=== PATIENT | male | born 1965 | race African-American/Black ===

== ENCOUNTER 2016-10-24 13:21 | Emergency (ER) | payer OTHER ==
[~2016-10-24] VITALS: Ht 180.3 cm; Wt 92.1 kg
--- NOTE | 2016-10-24 14:33 | ED GENERAL ADULT ---
History of Present Illness General Chief Complaint: General Adult Stated Complaint: HIGH BP; [place] Source: patient, family Exam Limitations: no limitations Vital Signs & Intake/Output Vital Signs & Intake/Output Vital Signs Date Time Temp Pulse Resp B/P Pulse O2 O2 Flow FiO2 Ox Delivery Rate 10/24 1539 98.0 74 18 168/100 98 Room Air Room Air 10/24 1327 98.2 70 18 173/98 97 Room Air Allergies Coded Allergies: Penicillins (Intermediate, FACIAL SWELLING 10/24/16) Reconcile Medications Amlodipine (Norvasc) 2.5 MG TABLET 1 TAB PO DAILY BP (Reported) Ibuprofen (Advil Migraine) 200 MG CAPSULE 4 CAP PO PRN PAIN (Reported) Lidocaine (Lidoderm) 5 % ADH..PATCH 1 PAT TOP PRN PAIN (Reported) may wear up to 12 hours Lisinopril 30 MG TABLET 1 TAB PO DAILY HEART (Reported) Triage Note: 51 YEAR OLD MALE STATES THAT HE WAS OFF HIS BP MEDS FOR 3 WEEKS DUE TO HE RAN OUT AND THAT HE WENT TO PMD THIS AM AND RECIEVED REFILLS, JUST STARTED TO TAKE AGAIN AT 1130. COMES TO ER DUE TO BP IS STILL ELEVATED AND HAS A SLIGHT HEADACHE Triage Nurses Notes Reviewed? yes HPI: 51-year-old male with a history of hypertension presents with hypertension and headache. He stopped taking his lisinopril 3 months ago, 30 mg, because he ran out of his prescription. Over the last month or so, he is getting intermittent headaches, denies any chest pain or blurry vision. Denies any nausea or vomiting. He went to see his primary care doctor today, they ryan blood tests but he does not know the results, he states his blood pressure was 175/103, they gave him lisinopril 30 mg and Norvasc 2.5 mg. His girlfriend insisted that he comes to the ER for further evaluation as he is having headaches and his blood pressure has not decreased since taking the medication this morning. He denies any nausea vomiting or shortness of breath OR dyspnea on exertion, Past History Travel History Traveled to [place] past 21 day No Medical History Any Pertinent Medical History? 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 No Review of Systems Review of Systems Constitutional: Reports: see HPI. EENTM: Reports: no symptoms. Respiratory: Reports: no symptoms. Cardiovascular: Reports: no symptoms. GI: Reports: no symptoms. Genitourinary: Reports: no symptoms. Musculoskeletal: Reports: no symptoms. Skin: Reports: no symptoms. Neurological/Psychological: Reports: see HPI. Hematologic/Endocrine: Reports: no symptoms. Immunologic/Allergic: Reports: no symptoms. All Other Systems: Reviewed and Negative Physical Exam Physical Exam General Appearance: well developed/nourished Comments: Well-developed well-nourished person in no acute distress HEENT: Normal EENT exam, extraocular motion intact, no nystagmus. Pupils equally round and reactive to light. Nose is atraumatic. Pharynx normal. No swelling or edema. Neck: Supple, no lymphadenopathy, normal range of motion without pain or tenderness Back: Nontender, no CVA tenderness. Full range of motion Cardiovascular: Regular rate and rhythms no murmurs, normal JVP Respiratory: Chest nontender. No respiratory distress. Breath sounds clear to auscultation bilaterally Abdomen: Soft, nontender nondistended, no appreciable organomegaly. Normal bowel sounds. No ascites Extremity: No edema, no calf tenderness to palpation, normal and equal pulses. Neuro: Alert oriented x3, motor sensory normal, cranial nerves II through XII grossly intact. Skin: No appreciable rash on exposed skin, skin is warm and dry. Psych: Mood and affect is normal, memory and judgment is normal. Core Measures ACS in differential dx? Yes CVA/TIA Diagnosis: No Severe Sepsis Present: No Septic Shock Present: No Progress Differential Diagnoses I considered the following diagnoses in my evaluation of the patient: Plan of Care: Orders Procedure Date/time Status Add-on Test (ER Only) 10/24 1425 Active URINALYSIS 10/24 1401 Complete TROPONIN LEVEL 10/24 1401 Complete COMPREHENSIVE METABOLIC PANEL 10/24 1401 Complete CBC WITHOUT DIFFERENTIAL 10/24 1401 Complete EKG 10/24 1401 Active Laboratory Tests 10/24/16 1432: Urine Color YEL, Urine Clarity CLEAR, Urine pH 6.0, Ur Specific [place] 1.025, Urine Protein TRACE H, Urine Ketones NEG, Urine Nitrite NEG, Urine Bilirubin NEG, Urine Urobilinogen 0.2, Ur Leukocyte Esterase NEG, Ur Microscopic SEDIMENT EXAMINED, Urine RBC RARE, Ur Epithelial Cells FEW, Urine Bacteria RARE H, Urine Mucus FEW, Urine Hemoglobin NEG, Urine Glucose NEG 10/24/16 1420: Anion Gap 9, Estimated GFR > 60, BUN/Creatinine Ratio 23.0, Glucose 103 H, Calcium 9.6, Total Bilirubin 0.5, AST 22, ALT 20 L, Alkaline Phosphatase 81, Troponin I 0.01, Total Protein 7.2, Albumin 3.8, Globulin 3.4, Albumin/Globulin Ratio 1.1, CBC w Diff NO MAN DIFF REQ, RBC 5.46, MCV 83.0, MCH 27.7, RDW 13.7, MPV 8.8, Gran % 65.2, Lymphocytes % 22.7, Monocytes % 8.9, Eosinophils % 2.7, Basophils % 0.5, Absolute Granulocytes 5.7, Absolute Lymphocytes 2.0, Absolute Monocytes 0.8 H, Absolute Eosinophils 0.2, Absolute Basophils 0, PUBS MCHC 33.4 Initial ED EKG: NORMAL SINUS RHYTHM 60 BPM,st ELEVATION NOTED v1 AND v2 v3 AND v4. st/t-WAVE DEPRESSION NOTED IN LEADS 1 Avl AND v6. lvh. Prior EKG: unchanged Rhythm Strip: normal sinus rhythm Comments: Patient's EKG noted and discussed with Dr. Burgess. It is a concerning-appearing EKG however patient is asymptomatic in regards to chest pain. We are trying to obtain a previous EKG from his primary care doctor's office. He states he did not have an EKG earlier this morning I called patient's primary care doctor's office and received a fax from them of his old EKG from 06/10/2015, it is not significant change from EKG that we have today. I discussed this with the patient, he states that prior to his liver cancer resection surgery he was found to have an abnormal EKG as well as had a workup and said that it was normal for him. His erythema is unremarkable, he has trace proteinuria, discusses with the patient, he should continue with his usual antihypertensive medication, Motrin and Tylenol for headaches, avoid salt and he has a follow-up with his primary care doctor in 2 weeks' time Departure Departure Disposition: HOME OR SELF CARE Condition: Stable Clinical Impression Primary Impression: Hypertension Qualifiers: Hypertension type: essential hypertension Qualified Code: I10 - Essential (primary) hypertension Referrals: CLAUDIA GUERRERO MD (PCP/Family) Additional Instructions: Please take your blood pressure medication as directed and follow-up with her primary care doctor in 2 weeks for recheck of your blood pressure. Take Tylenol and/or ibuprofen as needed for headaches Departure Forms: Customer Survey General Discharge Information Critical Care Note Critical Care Note Critical Care Time: non-applicable
[2016-10-24 14:35] LABS: ABSOLUTE BASOPHIL COUNT 0 /CUMM (0.0-0.2); ABSOLUTE EOSINOPHIL COUNT 0.2 /CUMM (0.0-0.7); ABSOLUTE GRANULOCYTE CT 5.7 /CUMM (1.4-6.5); ABSOLUTE MONOCYTE COUNT 0.8 /CUMM (0.10-0.60); BASOPHIL % 0.5 % (0.0-2.0); EOSINOPHIL % 2.7 % (0-5); GRANULOCYTE % 65.2 % (42.2-75.2); HEMATOCRIT 45.3 % (42-52); MEAN CORPUSCULAR HGB 27.7 PG (27.0-31.0); MEAN CORPUSCULAR HGB CONC 33.4 G/DL (33.0-37.0); MEAN PLATELET VOLUME 8.8 FL (7.4-10.4); PLATELET COUNT 301 /CUMM (130-400); RBC DISTRIBUTION WIDTH 13.7 % (11.5-14.5); RED BLOOD CELL CT 5.46 /CUMM (4.70-6.10); WHITE BLOOD CELL COUNT 8.7 /CUMM (4.8-10.8)
[2016-10-24] MEDS ORDERED: LISINOPRIL30 M1 PO (14:46)
[2016-10-24] MEDS ORDERED: LIDODERM1 EACH TOP (15:25)
[2016-10-24] MEDS ORDERED: ADVIL MIGRAINE200 M1 PO (15:25)
[2016-10-24] MEDS ORDERED: NORVASC2.5 M1 PO (15:25)
[2016-10-24 15:39] VITALS: BP 168/100
== END 2016-10-24 15:40 ==
LOC: ERH 13:21
PROVIDERS: Physician Assistant Surgical
DX: I10 Essential (primary) hypertension (principal)
CPT/HCPCS: 81001; 93005; 93010

== ENCOUNTER 2018-05-11 20:44 | Inpatient (IN) | payer OTHER ==
[~2018-05-11] VITALS: Ht 180.3 cm; Wt 92.7 kg
[~2018-05-11 20:44] MED LIST: ADVIL MIGRAINE200 M1 PO; LIDODERM1 EACH TOP; LISINOPRIL30 M1 PO; NORVASC2.5 M1 PO
--- NOTE | 2018-05-11 21:16 | ED CARDIAC/CP/PALPITATIONS ---
History of Present Illness General Chief Complaint: General Adult Stated Complaint: "HEADACHE, CHEST PAIN, WEAKNESS" Source: patient Exam Limitations: no limitations Vital Signs & Intake/Output Vital Signs & Intake/Output Vital Signs Date Time Temp Pulse Resp B/P B/P Pulse O2 O2 Flow FiO2 Mean Ox Delivery Rate 05/12 0127 98.2 53 18 140/84 94 Room Air 05/11 2353 54 18 116/66 97 Room Air 05/11 2118 Room Air 05/11 2118 160/88 ED Intake and Output 05/12 0000 05/11 1200 Intake Total Output Total Balance Patient 206 lb Weight Weight Standing Scale Measurement Method Allergies Coded Allergies: Penicillins (Intermediate, FACIAL SWELLING 10/24/16) Reconcile Medications Amlodipine (Norvasc) 2.5 MG TABLET 1 TAB PO DAILY BP (Reported) Ibuprofen (Advil Migraine) 200 MG CAPSULE 4 CAP PO PRN PAIN (Reported) Lisinopril 30 MG TABLET 1 TAB PO DAILY HEART (Reported) Triage Nurses Notes Reviewed? yes HPI: 53 yo gentleman presents with 5/10 substernal chest pressure that began in the morning, occasional radiating down let arm, and associated with dizziness. He notes mild shortness of breath. No fever, chills, nusea/vomiting. Past History Travel History Traveled to [place] past 21 day No Medical History Any Pertinent Medical History? 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 No Review of Systems Review of Systems Constitutional: Reports: no symptoms. EENTM: Reports: no symptoms. Respiratory: Reports: no symptoms. Cardiovascular: Reports: no symptoms. GI: Reports: no symptoms. Genitourinary: Reports: no symptoms. Musculoskeletal: Reports: no symptoms. Skin: Reports: no symptoms. Neurological/Psychological: Reports: no symptoms. Hematologic/Endocrine: Reports: no symptoms. Immunologic/Allergic: Reports: no symptoms. All Other Systems: Reviewed and Negative Physical Exam Physical Exam General Appearance: well developed/nourished, mild distress Head: atraumatic, normal appearance Eyes: Bilateral: normal appearance, PERRL, EOMI. Ears, Nose, Throat: normal pharynx, normal ENT inspection Neck: normal inspection, supple, full range of motion Respiratory: normal breath sounds Cardiovascular: regular rate/rhythm, normal peripheral pulses Gastrointestinal: normal bowel sounds, soft, non-tender, no organomegaly Rectal: normal exam, normal rectal tone, heme negative stool Back: normal inspection, normal range of motion Extremities: normal capillary refill, normal range of motion Neurologic/Psych: no motor/sensory deficits, awake, alert, oriented x 3 Skin: intact, normal color, warm/dry Core Measures ACS in differential dx? Yes No ASA d/t aspirin giveen CVA/TIA Diagnosis No Sepsis Present: No Sepsis Focused Exam Completed? No Progress Differential Diagnosis: AMI, aortic dissection, atrial fibrillation, cholecystitis, CHF/pulm edema, costochondritis, hyperkalemia, hypovolemia Plan of Care: Orders Procedure Date/time Status Nothing by Mouth 05/12 B Active TROPONIN LEVEL 05/12 0930 Active EKG 05/12 0930 Active MAGNESIUM 05/12 0600 Active LIPID PANEL 05/12 0600 Active GLYCOSYLATED HGB 05/12 0600 Active CBC WITHOUT DIFFERENTIAL 05/12 0600 Active BASIC ELECTROLYTES PLUS BUN&CR 05/12 0600 Active PARTIAL THROMBOPLASTIN TIME 05/12 0545 Active TROPONIN LEVEL 05/12 0330 Complete EKG 05/12 0330 Active Weight 05/12 0120 Active Vital Signs 05/12 0120 Active Teach/Educate 05/12 0120 Active Pain Treatment and Response 05/12 0120 Active Nutritional Intake, Monitor 05/12 0120 Active Isolation 05/12 0120 Active Intake & Output 05/12 0120 Active Patient Care Conference 05/12 0120 Active Activity/Ambulation 05/12 0120 Active Admit to inpatient 05/12 0040 Active Pathway - chart 05/12 0016 Active Patient Data 05/12 0016 Active Code Status 05/12 0016 Active Pathway - chart 05/12 UNK Active House Staff 05/12 UNK Active Lab Add-on Test 05/12 UNK Active VTE Mechanical Prophylaxis 05/12 UNK Active Telemetry/Certified Tumor Registrar 05/12 UNK Active Intake & Output 05/11 2352 Complete Patient Data 05/11 2323 Active Saline Lock 05/11 2310 Active Misc Message 05/11 2310 Active ED Holding Orders 05/11 2310 Active Vital Signs 05/11 2310 Complete Code Status 05/11 2310 Complete EKG 05/11 2242 Active EKG 05/11 2145 Active THYROID STIMULATING HORMONE 05/11 2122 Complete TOTAL TRIODOTHYROXINE 05/11 2122 Complete FREE T4 05/11 2122 Complete TROPONIN LEVEL 05/11 2107 Complete LIPASE 05/11 2107 Complete HEPATIC FUNCTION PANEL 05/11 2107 Complete D-DIMER 05/11 2107 Complete CBC WITHOUT DIFFERENTIAL 05/11 2107 Complete BASIC METABOLIC PANEL 05/11 2107 Complete AMYLASE 05/11 2107 Complete EKG 05/11 2047 Active Current Medications Sig/Angle Start time Last Medication Dose Stop Time Status Admin Amlodipine Besylate 2.5 MG DAILY 05/12 900 AC (Norvasc) Lisinopril 30 MG DAILY 05/12 900 AC (Prinivil) Multivitamins 1 TAB DAILY 05/12 900 AC (Theragran Vitamins) Acetaminophen 650 MG Q6 PRN 05/12 0015 AC 05/12 (Tylenol) 0210 Acetaminophen 1,000 MG Q6 PRN 05/12 0015 AC (Ofirmev) Hydromorphone HCl 0.5 MG Q4P PRN 05/12 15 AC (Dilaudid) Nitroglycerin 0.5 GM Q6 PRN 05/12 0015 AC (Nitro-Bid) Heparin Sodium 25,000 UNIT Q24H 05/11 2245 AC 05/11 (Porcine) 2341 (Heparin) Sodium Chloride 500 ML Laboratory Tests 05/12/18 0330: Troponin I 0.02 05/11/182121: Anion Gap 6, Estimated GFR > 60, BUN/Creatinine Ratio 25.0, Glucose 132 H, Calcium 9.0, Total Bilirubin 0.2, Direct Bilirubin 0.2, AST 18, ALT 22, Alkaline Phosphatase 67, Troponin I 0.02, Total Protein 6.6, Albumin 3.7, Amylase 101, Lipase 51, TSH 1.820, Free T4 0.99, Total T3 1.18, D-Dimer High Sensitivty < 200 , CBC w Diff NO MAN DIFF REQ, RBC 4.85, MCV 85.1, MCH 27.8, MCHC 32.7 L, RDW 14.3, MPV 8.8, Gran % 49.7, Lymphocytes % 35.0, Monocytes % 10.2 H, Eosinophils % 4.6, Basophils % 0.5, Absolute Granulocytes 3.9, Absolute Lymphocytes 2.7, Absolute Monocytes 0.8 H, Absolute Eosinophils 0.4, Absolute Basophils 0 Diagnostic Imaging: Viewed by Me: Radiology Read. Discussed w/RAD: Radiology Read. CXR Impression: PATIENT: ESME CISNEROS PRESENT AGE: 53 PATIENT ACCOUNT NO: [id number] : 63 LOCATION: [facility] ORDERING PHYSICIAN: Param Scales MD SERVICE DATE: 05/11/18 EXAM TYPE: RAD - XRY- PORTABLE CHEST XRAY EXAMINATION: CHEST 1 VIEW CLINICAL INFORMATION: Chest pain. COMPARISON: None. TECHNIQUE: An AP view of the chest is provided. FINDINGS: The cardiac silhouette is mildly enlarged with a left ventricular configuration. The mediastinal and hilar contours are unremarkable. There are neither pleural effusions nor pneumothoraces. There are no consolidations. The osseous structures are unremarkable. IMPRESSION: No evidence for acute disease. DICTATED BY: Thomas Beckham MD DATE/TIME DICTATED:05/11/182301 HEAD REFRIGERATION ENGINEER: BRUCE DATE/TIME TRANSCRIBED:05/11/182301 CONFIDENTIAL, DO NOT COPY WITHOUT APPROPRIATE AUTHORIZATION. <Electronically signed in Other Vendor System> SIGNED BY: Thomas Beckham MD 05/11/182304 Initial ED EKG: sinus, st seg elevation v3, 3mm.... 1mm st seg elevation v1, v2, flipped t's in v4-v6 without reciprocal changes. in comparison to prior, flipped t's are new. v3 morphology appears different Departure Departure Disposition: STILL A PATIENT Condition: Stable Clinical Impression Primary Impression: Chest pain Secondary Impressions: Abnormal EKG Referrals: Theo Martinez MD (PCP/Family) Departure Forms: Customer Survey General Discharge Information Comments 05/11/18, 21:25... discussed with [place] youth minister to consider cath... dr. shearer... he reviewed ekgs.... likely ekg changes are consistent with lvh... no need for urgent transfer for cardiac cath... will complete work up. 05/11/18, 21:45... Pt reports improvement in chest pain after nitro sl... now 10... will repeat ekg 05/11/18, 22:40... discussed with ludy gtz, who reviewed ekg... likely chronic change... pt to be admitted. Admission Note Spoke With: Bandar Ibarra MD Documentation of Exam: Documentation of any treatments & extenuating circumstances including Concerns Regarding Discharge (functional status, medication knowledge or non-compliance, living conditions, etc.) that warrant an admission rather than observation: PATIENT: WINNIE CANSECO PRESENT AGE: 75 PATIENT ACCOUNT NO: [id number] : [birth year] LOCATION: [facility] ORDERING PHYSICIAN: Miya OREILLY SERVICE DATE: 05/11/18 EXAM TYPE: RAD - XRY-CHEST XRAY, TWO VIEWS EXAMINATION: XR CHEST CLINICAL INFORMATION: Dizziness. Rule out cardiopulmonary process. COMPARISON: None TECHNIQUE: 2 views of the chest were obtained. FINDINGS: The cardiomediastinal silhouette is within normal limits in size. Calcification of the aortic arch is seen. Lungs bilaterally are symmetrically mildly hyperinflated and demonstrate mild bibasilar linear reticular atelectasis. No focal consolidation, effusion or pneumothorax is seen. Bony structures are unremarkable. IMPRESSION: Findings are suggestive of obstructive lung disease with mild bibasilar subsegmental atelectasis. Close clinical correlation is requested. No focal pneumonia. DICTATED BY: Nydia Dooley MD DATE/TIME DICTATED:05/11/181550 HEAD REFRIGERATION ENGINEER:BRUCE DATE/TIME TRANSCRIBED:05/11/181550 CONFIDENTIAL, DO NOT COPY WITHOUT APPROPRIATE AUTHORIZATION. <Electronically signed in Other Vendor System> SIGNED BY: Nydia Dooley MD [id number] Critical Care Note Critical Care Note Critical Care Time: 30-74 min
[2018-05-11 21:39] LABS: ABSOLUTE BASOPHIL COUNT 0 /CUMM (0.0-0.2); ABSOLUTE EOSINOPHIL COUNT 0.4 /CUMM (0.0-0.7); ABSOLUTE GRANULOCYTE CT 3.9 /CUMM (1.4-6.5); ABSOLUTE LYMPH COUNT 2.7 /CUMM (1.2-3.4); ABSOLUTE MONOCYTE COUNT 0.8 /CUMM (0.10-0.60); BASOPHIL % 0.5 % (0.0-2.0); EOSINOPHIL % 4.6 % (0-5); GRANULOCYTE % 49.7 % (42.2-75.2); HEMATOCRIT 41.2 % (42-52); MEAN CORPUSCULAR HGB 27.8 PG (27.0-31.0); MEAN CORPUSCULAR HGB CONC 32.7 G/DL (33.0-37.0); MEAN CORPUSCULAR VOLUME 85.1 FL (80.0-94.0); MEAN PLATELET VOLUME 8.8 FL (7.4-10.4); PLATELET COUNT 265 /CUMM (130-400); RBC DISTRIBUTION WIDTH 14.3 % (11.5-14.5); RED BLOOD CELL CT 4.85 /CUMM (4.70-6.10); WHITE BLOOD CELL COUNT 7.8 /CUMM (4.8-10.8)
--- NOTE | 2018-05-11 23:05 | RADIOLOGY REPORT ---
EXAMINATION: CHEST 1 VIEW CLINICAL INFORMATION: Chest pain. COMPARISON: None. TECHNIQUE: An AP view of the chest is provided. FINDINGS: The cardiac silhouette is mildly enlarged with a left ventricular configuration. The mediastinal and hilar contours are unremarkable. There are neither pleural effusions nor pneumothoraces. There are no consolidations. The osseous structures are unremarkable. IMPRESSION: No evidence for acute disease.
--- NOTE | 2018-05-11 23:34 | History & Physical ---
Mariana Perez 05/11/18 3554: General Information and HPI MD Statement: I have seen and personally examined ESME CISNEROS and documented this H&P. The patient is a 53 year old M who presented with a patient stated chief complaint of [fatigue and chest pain]. Source of Information: patient Exam Limitations: no limitations History of Present Illness: 53 yo M with a past medical history significant for hypertension, chronic headache, pancreatic surgery for a benign mass, presented to the emergency department for evaluation of fatigue and chest pain X 1 day. The patient reports that yesterday afternoon at around 3 PM while leaving work at the [employer] he is experience a lot of weakness. He reports lifting a lot of heavy metal at work. Also complains of chest pain on the night of 913. It was a sharp pain alternating with dullness, 6/10 in intensity, took Motrin which was not helpful. This chest pain is still ongoing and is 2/10 dull pain. Patient also reports being lightheaded/unsteady for the past couple of months, a couple of times every day of the week. He reports drinking enough fluids. Denies room spinning around him. He feels significant weakness in his upper body and reports intermittent numbness and tingling in his arms. The patient reports having frequent daily headaches that he treats with motrin up to a reported 4x a day sometimes. He describes having to get up 2-3 times a night to urinate. His partner has also noticed the patient to have snoring and what appears to be moments of apnea throughout the night. Denies: Shortness of breath, palpitations, abdominal pain, nausea vomiting, changes in bowel or bladder habits, change in vision or hearing, fever chills, dysuria, hematuria, sick contacts, recent travels. 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 Home Who Do You Live With? girlfriend Services at Home: None Primary Language: Icelandic Smoking Status: Former Smoker (08/29 PPD. Quit 1993) ETOH Use: occasional use Illicit Drug Use: denies illicit drug use Functional Ability ADLs Independent: dressing, eating, toileting, bathing. Ambulation: independent IADLs Independent: shopping, housework, finances, food prep, telephone, transportation , medication admin. Employment History Employment Employed Review of Systems Review of Systems Constitutional: Reports: see HPI. Exam & Diagnostic Data Last 24 Hrs of Vital Signs/I&O Vital Signs Date Time Temp Pulse Resp B/P B/P Pulse O2 O2 Flow FiO2 Mean Ox Delivery Rate 05/12 0127 98.2 53 18 140/84 94 Room Air 05/11 2353 54 18 116/66 97 Room Air 05/11 2118 160/88 Intake & Output 05/12 0800 05/12 0000 05/11 1600 Intake Total Output Total Balance Patient 205 lb 206 lb Weight Weight Bed scale Standing Scale Measurement Method Physical Exam General Appearance Alert, Oriented X3, Cooperative, No Acute Distress Skin No Rashes, No Breakdown, No Significant Lesion Skin Temp/Moisture Exam: Cool/Dry Sepsis Skin Exam (color): Normal for Ethnicity HEENT Atraumatic, PERRLA, EOMI, Mucous Membr. moist/pink Neck Supple, No JVD, No thryomegaly, +2 Carotid Pulse wo Bruit, No LAD Cardiovascular Regular Rate, Normal S1, Normal S2, No Murmurs Lungs Clear to Auscultation, Normal Air Movement Abdomen Normal Bowel Sounds, Soft, No Tenderness, No Hepatospenomegaly, No Masses Neurological Normal Speech, Strength at 5/5 X4 Ext, Normal Tone, Sensation Intact Extremities No Clubbing, No Cyanosis, No Edema, Normal Pulses, No Tenderness/ Swelling Assessment/Plan Assessment: 53 yo M with a past medical history significant for hypertension, chronic headache, pancreatic surgery for a benign mass, presented to the emergency department for evaluation of fatigue and chest pain X 1 day. Vitals: HR: 54, RR: 18, BP: 116/66, O2: 97% RA Labs:WBC 7.8, hemoglobin 13.5, platelet 265, sodium 140, potassium 3.8, BUN 25, creatinine 1, glucose 132, calcium 9, troponin 0 0.02, amylase 101, lipase 51, d -dimer 200. Chest x-ray No evidence of acute disease Treatment given in the emergency department: Aspirin 325 once, Nitroglycerin 0.4 mg once, Heparin-ACS protocol, IV Tylenol, Ketorolac inj once Problems: 1.N STEMI 2.hypertension Assessment and plan: As Ranked By This Provider Problem List: 1. Chest heaviness 2. Hypertension 3. Fatigue Core Measures/Misc (05/14) Acute Coronary Syndrome ACS Diagnosis: Yes Congestive Heart Failure Congestive Heart Failure Diagnosis No Cerebrovascular Accident CVA/TIA Diagnosis: No VTE (View Protocol) VTE Risk Factors Age>40 No Mechanical VTE Prophylaxis d/t N/A MechProphylax Ordered No VTE Pharm Prophylaxis d/t NA PharmProphylax ordered Sepsis (View protocol) Sepsis Present: No If YES complete Sepsis Event Note If YES complete Sepsis Event Note Anju Zaman MD 05/12/18 0002: General Information and HPI Allergies/Medications Home Med list Amlodipine (Norvasc) 2.5 MG TABLET 1 TAB PO DAILY BP (Reported) Aspirin (Aspirin*) 325 MG TABLET 81 MG PO DAILY heart health Atorvastatin Calcium (Lipitor) 10 MG TABLET 1 TAB PO DAILY HLD Diclofenac Sodium (Voltaren) 1 % GEL..GRAM. 1 GM TOP 4 TIMES/DAY PRN pain apply to affected area(s) Ibuprofen (Advil Migraine) 200 MG CAPSULE 4 CAP PO PRN PAIN (Reported) Lisinopril 30 MG TABLET 1 TAB PO DAILY HEART (Reported) Core Measures/Misc (05/14) Sepsis (View protocol) If YES complete Sepsis Event Note If YES complete Sepsis Event Note Resident Review Statement Resident Statement: examined this patient, agreed with purchasing internship Other Findings: 51-year-old gentleman with past medical history of hypertension, headache came to [place] ER with complaints of chest pressure upon exertion. He was in his usual state of health until 2 days ago, he had substernal chest pain which has been constant of 6 x 10 in severity. He denies any aggravating or relieving factors. There is no history of any radiation. He also complains of fatigue for the past few months and also reports greater weakness in his upper body compared to the lower body. He also endorses being lightheaded on and off for the past couple of months. He denies shortness of breath, diaphoresis, fall, loss of consciousness, orthopnea, paroxysmal nocturnal dyspnea, abdominal pain, nausea, vomiting, numbness, tingling sensation, blood in urine, bloody stool. Past surgical history ? 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 Previous smoker quit in and drinks alcohol on and off. Family history Mother- of liver cancer. Father had a history of liver cirrhosis. In the ED-Patient EKG had ST segment elevation in V3, V1 V2. His EKG was sent to property controller who thinks it is LVH and no intervention needed at this point. Admission vitals Pulse rate 54, respiratory rate 18, blood pressure 116/66, pulse oximetry 97 Admission labs WBC 7.8, hemoglobin 13.5, platelet 265, sodium 140, potassium 3.8, BUN 25, creatinine 1, glucose 132, calcium 9, troponin 0 0.02, amylase 101, lipase 51, d -dimer 200. Chest x-ray No evidence of acute disease ED treatment Heparin-ACS protocol Nitroglycerin 0.4 mg once IV Tylenol Ketorolac injection once Aspirin 325 once Physical examination Conscious, oriented 3, in no acute distress. Appears obese Patient is lying in his bed and not on any oxygen. Cardio [id number] no murmurs Respiratory system-normal vesicular breath sounds Abdomen-soft STATE ASSESSED PROPERTIES DIRECTOR-cranial nerve III-12 intact Extremity-no edema Assessment and plan NSTEMI Admitting in telemetry. Continuous telemetry monitoring Serial troponin and EKG. continue IV heparin Vitals every shift Nitro-Bid half inch twice daily as needed Continue aspirin Amlodipine 2.5 mg and lisinopril 30 mg for blood pressure control. Cardiology consult in a.m. Echocardiogram to rule out any regional wall motion abnormality Patient will be nothing by mouth Code-full code DVT professes-patient is on IV heparin Stacey EVANSOla 05/12/18 0314: General Information and HPI Statement: I have seen and personally examined ESME CISNEROS and documented this H&P. The patient is a 53 year old M who presented with a patient stated chief complaint of []. Source of Information: patient Exam Limitations: no limitations Allergies/Medications Allergies: Coded Allergies: Penicillins (Intermediate, FACIAL SWELLING 10/24/16) Past History Medical History Cardiovascular: hypertension Past Family/Social History Psychosocial History ETOH Use: denies use Review of Systems Review of Systems Constitutional: Reports: see HPI. Exam & Diagnostic Data Last 24 Hrs of Vital Signs/I&O Vital Signs Date Time Temp Pulse Resp B/P B/P Pulse O2 O2 Flow FiO2 Mean Ox Delivery Rate 05/12 0127 98.2 53 18 140/84 94 Room Air 05/11 2353 54 18 116/66 97 Room Air 05/11 2118 Room Air 05/11 2118 160/88 Intake & Output 05/12 0800 05/12 0000 05/11 1600 Intake Total Output Total Balance Patient 204 lb 206 lb Weight Weight Bed scale Standing Scale Measurement Method Core Measures/Misc (05/14) Sepsis (View protocol) If YES complete Sepsis Event Note If YES complete Sepsis Event Note Attending MD Review Statement Attending Statement Attending MD Statement: examined this patient, discuss w/resident/PA/REWORKER, agreed w/resident/PA/REWORKER, discussed with nursing, discussed with case mgmt Attending Assessment/Plan: This patient is a 53-year-old male with a significant past medical history for hypertension and headaches presenting with chest heaviness and weakness. He states his chest symptoms began 2 days ago and has been constant. He describes the chest heaviness as non-radiating localized over his sternum. The severity of his symptom was a 6/10 which has since come down to a 2. The patient describes an overall weakness and fatigue for the past couple of months, rating the severity as an 8/10. He feels significant weakness in his upper body and reports intermittent numbness and tingling in his arms. He also reports to feeling lightheaded and dizzy intermittently over the past couple of months. He describes having to get up 2-3 times a night to urinate. His partner has also noticed the patient to have snoring and what appears to be moments of apnea throughout the night. 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 However, his partner is concerned as the patient is not someone who typically admits to help and today he came to a point where his symptoms had become too much. While in the emergency department the patient was afebrile with stable vital signs, CVC normal, BUN slightly elevated at 25, first troponin negative, and chest x-ray does not demonstrate any acute disease. The patient will be admitted to telemetry and continued on the acute coronary syndrome protocol. He received heparin, nitroglycerin and aspirin while in the emergency department will continue on telemetry. Serial troponins and EKG, IV heparin, nitroglycerin as needed with chest pain, echocardiogram, and cardiology consultation in the a.m. Patient will be nothing by mouth. Full code
--- NOTE | 2018-05-12 01:02 | PN- Student ---
Subjective Subjective: Patient is a 53yo M with a history of hypertension and headaches presenting with chest heaviness and weakness. He states his chest symptoms began 2 days ago and has been constant. He describes the chest heaviness as non-radiating localized over his sternum. The severity of his symptom was a 6/10 which has since come down to a 2. He does not recognize any aggrevating or alleviating factors or any associated timing. The patient describes an overall weakness and fatigue for the past couple of months, rating the severity as an 8/10. He feels significant weakness in his upper body and reports intermittent numbness and tingling in his arms. The patient reports having frequent daily headaches that he treats with motrin up to a reported 4x a day sometimes. He also reports to feeling lightheaded and dizzy intermitently over the past couple of months. He describes having to get up 2-3 times a night to urinate. His partner has also noticed the patient to have snoring and what appears to be moments of apnea throughout the night. The patients partner describes him walking with a limp earlier this week due to a "knot" in the upper right leg. He reports having seen his PCP a few months ago for a regular check-up. 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 However, his partner is concerned as the patient is not someone who typically admitts to help and today he came to a point where his symptoms had become too much. 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 He stopped smoking in 1993 when he smoked 10 cigarettes as day and consumes 2-3 drinks a week. Family History: Father: , age 50 hx of liver cirrhosis Mother: , age 72 hx of liver cancer Brother: hx of liver cancer ROS: General: reports fatigue. denies fever, chills, diaphoresis. HEENT: reports headache, lightheaded, dizzy and changes in hearing associated with working at the [employer]. denies visual changes Neck: denies sore throat or trouble swallowing Respiratory: reports "coughs all the time". denies SOB Cardio: See HPI. denies any palpitations Gastrointestinal: denies any changes in bowel, nasusea, or vomitting Genitourinary: reports getting up 2-3x a night to urinate Extremities: reports numbness, tingling, and weakness in his UEs Objective Objective: Physical Exam: Vitals: HR: 54, RR: 18, BP: 116/66, O2: 97% RA General: patient was lying in bed, tired and a little irritated, in no acute distress HEENT: hearing grossly in tact, sclera were not noticably pale Respiratory: lungs clear to auscultation, no respiratory distress Cardiovascular: regular rate and rhythm, auscultation over PMI abnormal Abdominal: no tenderness or guarding, bowel sounds heard throughout Extremities: no clubbing, swelling or edema, normal capillary refill
[2018-05-12 01:27] VITALS: BP 140/84
[2018-05-12 07:13] VITALS: BP 154/90
--- NOTE | 2018-05-12 08:19 | PN- Att Addend ---
Attending Addendum Attending Brief Note Pt seen and examined. Overall he feels better right now but he had this heaviness in his chest, knot-like sensation and arm heaviness as well. On exam blood pressure is 154/90, pulse is 50, breathing at 16-18 and afebrile. Awake alert oriented, lungs are clear to auscultation bilaterally, heart is S1- S2 regular, abdomen is soft, no clubbing cyanosis edema and no JVD. EKG is LVH with repolarization that his troponin is negative. This is a 53-year-old male past medical history of hypertension on lisinopril and Norvasc as an outpatient, ex-smoker smoked 10 cigarettes a day and quit in the . He is here with very typical symptoms of chest pain suggestive of unstable angina. He is on aspirin ,heparin the MENDEL inhibitor and statin. He is n.p.o. and will talk to cardiology about cardiac cath.
[2018-05-12 08:21] LABS: ABSOLUTE BASOPHIL COUNT 0 /CUMM (0.0-0.2); ABSOLUTE EOSINOPHIL COUNT 0.3 /CUMM (0.0-0.7); ABSOLUTE GRANULOCYTE CT 3.2 /CUMM (1.4-6.5); ABSOLUTE LYMPH COUNT 1.7 /CUMM (1.2-3.4); ABSOLUTE MONOCYTE COUNT 0.6 /CUMM (0.10-0.60); BASOPHIL % 0.7 % (0.0-2.0); EOSINOPHIL % 5.7 % (0-5); GRANULOCYTE % 54.6 % (42.2-75.2); HEMATOCRIT 39.5 % (42-52); MEAN CORPUSCULAR HGB CONC 32.8 G/DL (33.0-37.0); MEAN CORPUSCULAR VOLUME 85.5 FL (80.0-94.0); MEAN PLATELET VOLUME 9.7 FL (7.4-10.4); PLATELET COUNT 236 /CUMM (130-400); RBC DISTRIBUTION WIDTH 13.6 % (11.5-14.5); RED BLOOD CELL CT 4.63 /CUMM (4.70-6.10); WHITE BLOOD CELL COUNT 5.9 /CUMM (4.8-10.8)
--- NOTE | 2018-05-12 08:29 | PN- Housestaff ---
Subjective Follow-up For: Unstable angina Tele-Events Since Last Visit: Patient remained in sinus rhythm with heart rate between 5158 with PACs Subjective: No overnight events. Patient remained afebrile [place] and examined this morning. He denied palpitation, nausea, vomiting, chill, fever, abdominal pain dysuria. Patient reported some heaviness in the chest and also in the arm. We are keeping the patient n.p.o. if cardiology wants to do some intervention. Review of Systems Constitutional: Denies: chills, fever. EENTM: Reports: see HPI. Cardiovascular: Reports: chest pain. Denies: palpitations, syncope. Respiratory: Denies: cough, orthopnea, short of breath, sputum production, wheezing. Gastrointestinal: Denies: abdominal pain, constipation, diarrhea, nausea, vomiting. Genitourinary: Reports: no symptoms. Musculoskeletal: Reports: see HPI. Neurological/Psychological: Reports: no symptoms. Objective Last 24 Hrs of Vital Signs/I&O Vital Signs Date Time Temp Pulse Resp B/P B/P Pulse O2 O2 Flow FiO2 Mean Ox Delivery Rate 05/12 0852 51 160/100 05/12 0852 51 160/100 05/12 0713 98.4 50 18 154/90 97 Room Air 05/12 0127 98.2 53 18 140/84 94 Room Air 05/11 2353 54 18 116/66 97 Room Air 05/11 2118 Room Air 05/11 2118 160/88 Intake & Output 05/12 1600 05/12 0800 05/12 0000 Intake Total 120 Output Total Balance 120 Intake, IV 120 Number 2 Bowel Movements Patient 204 lb 206 lb Weight Weight Bed scale Standing Scale Measurement Method Physical Exam General Appearance: Alert, Oriented X3, Cooperative Skin Temp/Moisture Exam: Warm/Dry Sepsis Skin Exam (color): Normal for Ethnicity HEENT: Atraumatic, PERRLA, EOMI Neck: Supple Cardiovascular: Normal S1, Normal S2 Lungs: Clear to Auscultation Abdomen: Soft, No Tenderness Neurological: Normal Speech, Strength at 5/5 X4 Ext, Normal Tone Extremities: No Edema Assessment/Plan Assessment: 53 YO M, ex-smoker with PMH significant for HTN, chronic headache, pancreatic surgery for a benign mass, presented to the emergency department for evaluation of fatigue and chest pain for 1 day. Seeing the patient on telemetry floor for following problems. Unstable angina: -Patient presented with typical chest pain and arm pain. Patient had ST segment elevation in V3V1 and V2. His EKG was sent to paid search marketing analyst who thinks it is LVH and no intervention needed at this point. -His troponin remained negative. -Nitroglycerin patch as needed as needed for pain -His heparin was discontinued and patient was cleared by cardiology to go home and he will follow cardiology as outpatient stress test. -Continue aspirin 325 mg daily. History of hypertension hyperlipidemia: -Continue amlodipine and lisinopril -Continue Lipitor DVT prophylaxis: Mechanical and patient is already on IV heparin CODE STATUS; Full code Problem List: 1. Unstable angina Pain Ratin Pain Location: none Pain Goal: Remain pain free Pain Plan: pain pathway Tomorrow's Labs & Rationales: cbc/bep
[2018-05-12 08:52] VITALS: BP 160/100
[2018-05-12 09:47] LABS: PTT 38 SEC (25-37)
[2018-05-12] MEDS ORDERED: ASPIRIN325 M2 PO (11:21)
--- NOTE | 2018-05-12 11:23 | Patient Discharge Instructions ---
Discharge Instructions General Discharge Information You were seen/treated for: CHEST PAIN Special Instructions: Please follow up with grain mixer and your PCP in a week's time after discharge. Diet Continue normal diet: No Recommended Diet: Heart Healthy Activity Full Activity/No Limits: No Activity Self Limited: Yes Acute Coronary Syndrome Inclusion Criteria At DC or during hospital stay patient has or had the following: ACS DIAGNOSIS No Discharge Core Measures Meds if any: Prescribed or Continued at Discharge Meds if any: NOT Prescribed or Continued at Discharge Congestive Heart Failure Inclusion Criteria At DC or during hospital stay patient has or had the following: CHF DIAGNOSIS No Discharge Core Measures Meds if any: Prescribed or Continued at Discharge Meds if any: NOT Prescribed or Continued at Discharge Cerebrovascular accident Inclusion Criteria At DC or during hospital stay patient has or had the following: CVA/TIA Diagnosis No Discharge Core Measures Meds if any: Prescribed or Continued at Discharge Meds if any: NOT Prescribed or Continued at Discharge Venous thromboembolism Inclusion Criteria VTE Diagnosis No VTE Type NONE VTE Confirmed by (Test) NONE Discharge Core Measures - Per Current guidelines, there needs to be overlap - treatment for the first 5 days of Warfarin therapy. - If discharged on Warfarin prior to 5 days of - overlap therapy, the patient will need to be - assessed for post discharge needs including - *Post discharge parental anticoagulation - *Warfarin and/or parental anticoagulation education - *Follow up date to check INR post discharge At least 5 days overlap therapy as Inpatient No Meds if any: Prescribed or Continued at Discharge Note: Overlap Therapy is Warfarin and Anticoagulant Meds if any: NOT Prescribed or Continued at Discharge
[2018-05-12] MEDS ORDERED: LIPITOR10 M1 PO (11:44)
[2018-05-12] MEDS ORDERED: VOLTAREN100 GM TOP (11:44)
--- NOTE | 2018-05-12 12:06 | Discharge Summary ---
Visit Information Visit Dates Admission Date: 05/11/18 Discharge Date: 05/12/18 Hospital Course Course Attending Physician: Bandar Ibarra MD Primary Care Physician: Theo Martinez MD Hospital Course: 53 YO M, ex-smoker with PMH significant for HTN, chronic headache, pancreatic surgery for a benign mass, presented to the emergency department for evaluation of fatigue and chest pain for 1 day. ED course: Vital: Temperature 98.2, pulse 53, respiratory rate 18, blood pressure 140/84, oxygen saturation 94% on room air Labs: WBC count 7.0, hemoglobin 13.5, hematocrit 41.2, platelet count 265, sodium 140, potassium 3.8, BUN 25, creatinine 1.0, glucose 132, calcium 9.0, BUN /creatinine ratio 25.0, troponin 0 0.02, d-dimer less than 200, TSH 1.820, free T4 0.99 Chest pain: Patient was admitted with chest pain initially treated for unstable angina/non- ST segment elevation NM but he stops remained negative his EKG changes were nonspecific. Patient had reproducible chest pain on pressing on the sternum. Possibly costochondritis. Initially IV heparin was started and patient was given aspirin and nitroglycerin as needed. Later on his IV heparin was discontinued. Cardiology consult was obtained and recommendations are followed. Cardiology recommended Voltaren gel to apply of the chest and recommended to follow cardiology as outpatient for stress test for risk stratification. Patient was started on Lipitor 10 mg. Patient was also recommended to follow primary care physician after discharge and get CT scan had considering his history of intermittent headaches and family history of cancers. History of hypertension hyperlipidemia: His lisinopril and amlodipine were continued. Patient was started on 10 mg Lipitor. DVT prophylaxis: Mechanical and patient was on IV heparin CODE STATUS; Full code Allergies: Coded Allergies: Penicillins (Intermediate, FACIAL SWELLING 10/24/16) Pertinent Lab Results: Chest x-ray on 05/11/2018: IMPRESSION: No evidence for acute disease. Disposition Summary Disposition Principal Diagnosis: Chest pain possibly costochondritis Additional Diagnosis: History of hypertension and hyperlipidemia Discharge Disposition: home or self care Discharge Instructions General Discharge Information Code Status: Full Code Patient's Diet: Heart healthy diet Patient's Activity: Self limited Follow-Up Instructions/Appts: Follow-up with your primary care physician in 1 week Follow-up with your comb winder in 1 week and ask about cardiac stress test for risk stratification Medications at Discharge Discharge Medications: Continue taking these medications: Lisinopril (Lisinopril) 30 MG TABLET 1 Tablet ORAL DAILY Qty = 30 Comments: Last Taken:05/12/18 Time:851 Amlodipine (Norvasc) 2.5 MG TABLET 1 Tablet ORAL DAILY Comments: Last Taken:05/12/18 Time:851 Ibuprofen (Advil Migraine) 200 MG CAPSULE 4 Capsule ORAL as needed for PAIN Comments: NOT GIVEN Start taking the following new medications: Aspirin (Aspirin*) 325 MG TABLET 81 Milligram ORAL DAILY Qty = 30 Refills = 1 Comments: Last Taken:05/12/18 Time:851 Diclofenac Sodium (Voltaren) 1 % GEL..GRAM. 1 Gram On the skin 4 TIMES A DAY as needed for pain Qty = 100 No Refills Instructions: apply to affected area(s) Atorvastatin Calcium (Lipitor) 10 MG TABLET 1 Tablet ORAL DAILY Qty = 30 No Refills Copies To: Juan EVANS,Simón Maldonado MD PHD,Bi Garcia
== END 2018-05-12 16:03 | DRG 203 ==
LOC: ERH 20:44 → ERHI 23:26 → ENRESERV 23:39 → 1NO 05-12 00:40 → ERHI 05-12 00:40 → 1NO 05-12 00:56
PROVIDERS: Pediatrics; Student in an Organized Health Care Education/Training Program
DX: M94.0 Chondrocostal junction syndrome [Tietze] (principal); I10 Essential (primary) hypertension; R51 Headache; Z87.891 Personal history of nicotine dependence; Z88.0 Allergy status to penicillin; E78.5 Hyperlipidemia, unspecified
CPT/HCPCS: 1NP; ERO; 36415; 36592; 71045; 82436; 93005; 93010; 96374; 96375; J0131; J1644; J1885; J3490